=== PATIENT | female | born 1960 | race Caucasian/White ===

== ENCOUNTER 2017-04-03 11:28 | Outpatient (CLI) | payer OTHER ==
[2014-12-07 10:33] VITALS: BP 127/69
== END 2017-04-03 11:30 ==
LOC: CARD 11:28
PROVIDERS: ATTEND Internal Medicine Cardiovascular Disease
DX: R00.2 Palpitations (principal); E78.5 Hyperlipidemia, unspecified; E66.9 Obesity, unspecified
CPT/HCPCS: 99213; 99214

== ENCOUNTER 2017-10-08 11:29 | Outpatient (CLI) | payer OTHER ==
[2014-12-07 10:33] VITALS: BP 127/69
[2017-10-08 12:04] LABS: EOSINOPHILS % 5.7 % (0.0-6.8); MEAN CORPUSCULAR HEMOGLOBIN 30.3 pg (28.0-34.0); MEAN CORPUSCULAR VOLUME 93.3 fl (80.0-100.0); MONOCYTES % 4.5 % (0.0-11.0)
[2017-10-08 12:16] LABS: eGFR (African) > 60; eGFR (Non-African) > 60
== END 2017-10-08 11:35 ==
LOC: LAB 11:29
PROVIDERS: ATTEND Family Medicine
DX: E78.2 Mixed hyperlipidemia (principal); R14.0 Abdominal distension (gaseous); R63.5 Abnormal weight gain
CPT/HCPCS: 36415; 80053; 80061; 83690; 84443; 85025

== ENCOUNTER 2017-11-05 09:19 | Day surgery (SDC) | payer OTHER ==
[2014-12-07 10:33] VITALS: BP 127/69
[~2017-11-05 09:19] MED LIST: LACTATED RINGERS 1,000 ML IV.SOLN IV ONE; LIDOCAINE HCL/PF 2% 100 MG/5 ML VIAL IJ ONE; PROPOFOL 200 MG/20 ML VIAL IV ONE; SALINE FLUSH 10 ML DISP.SYRIN IVF ONE
--- NOTE | 2017-11-05 13:25 | GI Report ---
REFERRING PHYSICIAN: Dr. Vicki Hutchinson KELLER MACHINE OPERATOR: Zacarias Toscano MD PROCEDURE MEDICATION: Propofol as per anesthesia. INDICATIONS: This 56-year-old woman has been having epigastric pain and discomfort frequently in the evening and it may last for a couple of hours. Antacids, like Maalox, may help the discomfort. She did have a cholecystectomy in the past. She denies dysphagia. She is 5 feet 6 inches and weighs 100 kilograms and carries that weight centrally. She only takes a PPI kind of p.r.n. and not daily. PROCEDURE PERFORMED: Endoscopy and biopsies. DESCRIPTION OF PROCEDURE: An [employer] video endoscope is passed through the esophagus under direct visualization. She has grade 2 esophagitis at the GI junction. Biopsies were taken for pathology. The stomach is entered. There was gastritis. There was bile present with a lot of edema and friability. Biopsies were taken for pathology. Duodenal bulb and first and second part of the duodenum were examined and were normal. FINDINGS: 1. Distal esophagitis. 2. Moderate to severe gastritis with bile present with a number of erosions. RECOMMENDATIONS: 1. She needs to be on a PPI daily at half-hour before either breakfast or supper. 2. Avoid non-steroidal's. 3. Elevate the head of the bed about 3 inches with boards or blocks. 4. She needs to take an antacid always at bedtime like Gaviscon and after meals as needed. 5. With the central obesity and reflux, a 10 to 15 pound weight loss would be beneficial for decreasing intragastric pressure and improving reflux. 6. Follow up with Dr. Hutchinson. cc: Dr. Vicki ZALDIVAR
== END 2017-11-05 09:20 ==
LOC: OPSURG 09:19
PROVIDERS: ATTEND Internal Medicine Gastroenterology
DX: K20.8 Other esophagitis (principal); K29.60 Other gastritis without bleeding; R10.13 Epigastric pain
CPT/HCPCS: 88305; J2001; J2704; J7120; 43239; S1016

== ENCOUNTER 2018-10-31 09:16 | Outpatient (CLI) | payer OTHER ==
[2014-12-07 10:33] VITALS: BP 127/69
[2018-10-31 10:06] LABS: eGFR (Non-African) > 60
== END 2018-10-31 09:18 ==
LOC: LAB 09:16
PROVIDERS: ATTEND Family Medicine
DX: E78.2 Mixed hyperlipidemia (principal); L65.9 Nonscarring hair loss, unspecified
CPT/HCPCS: 36415; 80053; 80061; 84443

== ENCOUNTER 2019-11-04 09:37 | Outpatient (CLI) | payer OTHER ==
[2014-12-07 10:33] VITALS: BP 127/69
[2019-11-04 10:16] LABS: eGFR (Non-African) > 60
[2019-11-04 10:17] LABS: HDL 60 mg/dL (>40)
== END 2019-11-04 09:42 ==
LOC: LAB 09:37
PROVIDERS: ATTEND Family Medicine
DX: Z13.220 Encounter for screening for lipoid disorders (principal)
CPT/HCPCS: 36415; 80053; 80061